=== PATIENT | male | born 1990 | race Caucasian/White ===

== ENCOUNTER → 2019-12-15 | Outpatient (BNVA) | payer OTHER, SELFPAY | PROVIDERS: Visit Provider Internal Medicine | DX: M75.42 Impingement syndrome of left shoulder (principal) | CPT/HCPCS: 99202 ==

== ENCOUNTER → 2019-12-19 08:34 | Outpatient (BNVA) | payer OTHER, SELFPAY | PROVIDERS: Visit Provider Internal Medicine | DX: M75.42 Impingement syndrome of left shoulder (principal) | CPT/HCPCS: 99213 ==

== ENCOUNTER 2020-02-12 09:00 | Outpatient (RCR) | payer OTHER, SELFPAY ==
--- NOTE | 2019-12-21 15:24 | MHC.PT.EP ---
[facility] [place] [facility] [place] [facility] [place] [facility] [address] Schuyler Gallo [address] [phone] F: [phone] F: [phone] F: [phone] F: [phone] Physical Therapy Plan of Care Date of Evaluation: 12/21/19 Date of Surgery: Diagnosis: left shoulder pain Assessment: The patient had slightly decreased cervical rotation ROM. He had painful shoulder flexion/abduction at end range. He had sharp local pain at the AC joint and distal acromion. He was positive for GH impingement tests. I did a Gladys screen to his cervical spine and there seemed to be no relation. He is a good candidate for skilled PT to improve his current impairments. Frequency and Duration: The patient will be seen 2x/week for 4 weeks. Short Term Goals: Pt will return to full PROM in 2 weeks. Pt will return demonstration of current HEP in 2 weeks. Snf Goals: 1. Pt will be able to perform all functional reaching pain free in 4 weeks. 2. Pt will be able to return to work simulated tasks such as dynamic movement with resistance in 4 weeks. 3. Pt will return to all functional movements and uninterrupted sleep in 4 weeks. Treatment Plan: Modalities to reduce pain, spasms and effusion. Manual therapy to restore motion and function. Therapeutic exercise to improve strength and flexibility. Neuromuscular re-education for posture and balance. Therapeutic activities to return to functional activities of daily living. Please sign and return to therapist. Thank you for your referral.
--- NOTE | 2020-02-19 14:47 | MHC.PT.DC ---
[facility] [place] Office [place] Office [place] Office [address] Schuyler Gallo 140 [facility] [phone] F: [phone] F: [phone] F: [phone] F: [phone] Physical Therapy Discharge Report Diagnosis: left shoulder pain Date of Surgery: Date of Evaluation: 12/21/19 Date of Discharge: 02/12/20 Treatments to Date: 11 Cancellations to Date: 2 No Shows to Date: 0 Discharge Status: Achieved Goals Improved Function Independent with HEP Discharge Summary: Pt's ROM is nearly WNL. He has normal strength in all planes of motion other than overhead. He is independent with his strength program and has been discharged to continue he HEP. He has returned back to work normal duty. Electronically signed by: Key Sarabia PT DPT Please sign and return to therapist. Thank you for your referral.
== END 2020-02-19 14:49 | disposition other institution (70) ==
LOC: HO.PT 09:00
PROVIDERS: Visit Provider Internal Medicine
DX: S46.002D Unspecified injury of muscle(s) and tendon(s) of the rotator cuff of left shoulder, subsequent encounter (principal); X58.XXXD Exposure to other specified factors, subsequent encounter
CPT/HCPCS: 97033; 97110; 97112; 97140; 97161; 99213

== ENCOUNTER 2023-12-22 11:29 | Outpatient (REF) | payer OTHER, SELFPAY | END 2023-12-22 11:30 | disposition home or self-care (01) | LOC: HO.US 11:29 | PROVIDERS: Visit Provider Internal Medicine | DX: R10.32 Left lower quadrant pain (principal) | CPT/HCPCS: 76857 ==

== ENCOUNTER 2024-09-06 20:49 | Emergency (ER) | payer OTHER, SELFPAY ==
--- NOTE | ~2024-09-06 | XR_ITS ---
CLINICAL HISTORY: contusion L wrist, pain 4 view left wrist Comparison: None provided Findings: Bones intact. No dislocations. No radiopaque foreign body. IMPRESSION: 1. No acute fracture or dislocation injury identified at the left wrist. This document has been electronically signed by: Preston Danielson MD on 09/06/2024 21:36:37
--- NOTE | ~2024-09-06 | XR_ITS ---
CLINICAL HISTORY: contusion 3 view left hand Comparison: None provided Findings: Bones intact. No dislocations. No radiopaque foreign body. IMPRESSION: 1. No acute fracture or dislocation injury identified at the left hand This document has been electronically signed by: Preston Danielson MD on 09/06/2024 21:32:59
[2024-09-06 20:52] VITALS: BP 133/76; PULSE 68; RESP 16; TEMP 36.7; O2SAT 98; BMI 29.8
--- OUTSIDE RECORDS SUMMARY | 2024-09-06 21:03 | XMS_ITS | Clinical Summary ---
Author Organization [facility] Address [address] [place] [phone] Phone Care Team Providers Care Motel Manager Name Role Phone Sophia Arcos MD Primary Care Provider [phone] Immunizations Immunization Administration Dates Next Due DTP 05/03/1996, 3,1991,07/10,1991 Hep B, ped/adol 02/21/1996,09/20/1995,08/18/1995 Hib (PRP-T) 07/04/1992, 2,1991,04/22 MMR 05/03/1996,07/04/1992 Meningococcal Conj (Menactra) MCV4P 08/16/2007 OPV 05/03/1996, 3,1991,04/22 Td (adult) (MBL), 2 Lf tetan us toxoid, PF, adsorbed 05/11/2003 Tdap 08/16/2007 Varicella 08/16/2007,08/18/1995,08/02/1995 Family History Relation Name Status Comments Brother Brother: Cancer -brain, Father Alive Father: Alive a nd well Mother Alive Mother: Alive a nd well Paternal Grandfather Paterna l grandfather: cancer, Paternal Grandmother Paterna l grandmother: , cardiac Social History Tobacco Use Types Packs/Day Years Used Date Smoking Tobacco: Never Assessed Sex and Gender Information Value Date Recorded Sex Assigned at Not on file Legal Sex Male 4:34 PM EDT Gender Identity Not on file Sexual Orientation Not on file Last Filed Vital Signs Vital Sign Reading Time Taken Comments Blood Pressure 108/66 08/19/2009 12:00 AM EDT Pulse - - Temperature 36.8 C (98.2 F) 02/06/2010 12:00 AM EST Respiratory Rate - - Oxygen Saturation - - Inhaled Oxygen Concentration - - Weight 67.6 kg (149 lb) 02/06/2010 12:00 AM EST Height 169.7 cm (5' 6.8 ) 08/19/2009 12:00 AM ED T Body Mass Index 23.48 08/19/2009 12:00 AM EDT Plan of Treatment Health Maintenance Due Date Last Done Comments DTaP,Tdap,and Td Vaccines (7 - Td or Tdap) 08/15/2017 08/16/2007, 05/11/2003, 05/03/1996, Additional history exists COVID-19 Vaccine ( season) 2023 Influenza Vaccines (#1) 2024 HIB Vaccines Completed 07/04/1992, 08/24, 1991, Additional history exists Hepatitis B Vaccines Completed 02/21/1996, 09/20/1995, 08/18/1995 IPV Vaccines Completed 05/03/1996, 11/22, 1991, Additional history exists MMR Vaccines Completed 05/03/1996, 07/04/1992 Meningococcal Vaccine Completed 08/16/2007 Varicella Vaccines Completed 08/16/2007, 0 08/18/1995, 08/02/1995 HPV Vaccines Aged Out No longer eligi ble based on patient's age to complete this topic Hepatitis A Vaccines Aged Out No long er eligible based on patient's age to complete this topic Men B Vaccine Aged Out No longer elig ible based on patient's age to complete this topic Pneumococcal Vaccine Aged Out No long er eligible based on patient's age to complete this topic Care Teams Motel Manager Relationship Specialty Start Date End Date Sophia Arcos MD [address] [place] [address] AMBER Blanchard [id number] PCP - General 10/02/16
--- OUTSIDE RECORDS SUMMARY | 2024-09-06 21:04 | XMS_ITS | Data Portability ---
Author Organization [facility], Main Office Address [address] [place] [address] Care Team Providers Care Bait Digger Name Role Phone FRAN ARGUELLES Primary Care Provider RICA MUSTAFA Urologist [facility] Senior Accounting Manager CLAUDIA PERRY Senior Accounting Manager [facility] General Surgeon SHERIE SOLOMON Phys. Med. & Rehab Assessment No assessment recorded. Plan of Treatment Reminders Order Date Submit Date Provider Last Modified By Organization Details Last Modified Time Details Appointments None record ed. Lab urinal ysis comple te, reflex cultur e 2023 024 AURY [facility] (Centralized Electronic Ordering - All Locations), Patient Can Go To The Location Of Their Choice, [id number] 4 12:06:00 urinal ysis, comple te 2022 023 AURY [facility], [address], [place], [address], 3 15:24:27 CMP, serum or plasma 2022 023 AURY [facility], [address], [place], [address], 3 15:19:13 lipid panel, serum 2022 023 AURY [facility], [address], [place], [address], 3 15:19:14 TSH, serum or plasma 2022 023 AURY [facility], [address], [place], [address], 3 15:32:13 CBC w/ auto diff 2022 023 AURY [facility], [address], [place], [address], 3 14:36:25 hepati tis C virus Ab, serum 2022 023 AURY [facility], [address], [place], [address], 3 07:07:12 CT + NG DNA, PCR, urine 2022 023 AURY [facility], [address], [place], [address], 3 12:18:20 urinal ysis, dipsti ck 2022 023 [email or web address] In-Office Order, Internal Use Only DO Not Attach Compendium DO Not Attach Compendium, Do Not Delete/merge, [id number] 3 18:22:05 unlist ed lab - urinal ysis w/refl ex cultur e 2022 023 [email or web address] [facility], [address], [place], [address], 3 18:22:05 Referral nutrit ionist /dieti luisito referr al 2023 024 [email or web address] Not available 5 09:14:32 physic al medici ne and rehabi litati on referr al - for eval of hip flexor strain 2023 024 [email or web address] [facility], [address] [place], [address], 5 09:14:32 physic al medici ne and rehabi litati on referr al - Bilate ral inguin al pain L>R 2023 024 [email or web address] [facility], [address] [place], [address], 4 08:48:07 nutrit ionist /dieti luisito referr al 2022 023 [email or web address] Not available 3 11:20:58 urolog ist referr al - dysuri a withou t infect ion, penile lesion s, rectal pressu re, flank pain US pendin g 2022 023 [email or web address] [facility], [address], [place], [address], 3 13:22:43 gastro entero logist referr al - monthl y interm ittent rectal bleedi ng 2022 023 [email or web address] Pompa MD, [address], [place], [address], 3 11:12:23 Procedures None record ed. Surgeries None record ed. Imaging US, groin - Left inguin al pain. R/o hernia . 2023 024 [email or web address] [facility] (Central Scheduling Radiology), [address] [place], [address], 4 08:20:07 US, kidney - occasi onal hematu cassy and flank pain, rule out stones 2022 023 [facility] (Ultrasound), [address] [place], [address], 3 10:55:10 US, blaherminiae r - bladde r irrita iton, r/o stones [email or web address] [facility] (Medical Records), [address] [place], [address], 14:36:59 Medication Orders None record ed. Patient TargetsNo targets recorded. Patient Instructions Encounter Date Encounter Id Patient Instructions Last Modified By Organization Details Last Modified Time 01/12/2023 [id number] starting a weight loss plan: care instructions [email or web address] Not available 01/12/2023 10:59:10 01/27/2024 [id number] starting a weight loss plan: care instructions [email or web address] Not available 01/27/2024 11:06:31 hip flexor strain education [email or web address] Not available 01/27/2024 11:06:30 hip flexor strain: rehab exercises [email or web address] Not available 01/27/2024 11:06:30 Reason for Referral Senior Accounting Manager Referral for History of rectal bleeding monthly intermittent rectal bleeding Referring Physician: [facility], Encounter Date: 06/12/2022 Urologist Referral for Dysur ia dysuria without infection, penile lesions, rectal pressure, flank pain US pending Referring Physician: Family [facility], Encounter Date: 06/12/2022 Matrix Supervisor/dietitian Refer ral for Body mass index 30+ - obesity Referring Physician: Family Maria Esther Dela Cruz, Encounter Date: 01/12/2023 Physical Medicine And Rehab[facility] litation Referral for Left inguinal pain Bilateral inguinal pain L>R Referring Physician: Wil [facility], Encounter Date: 11/24/2023 Physical Medicine And Rehabi litation Referral for Bilateral pain of inguinal region for eval of hip flexor strain Referring Physician: Family Maria Esther Dela Cruz, Encounter Date: 01/27/2024 Matrix Supervisor/dietitian Refer ral for Body mass index 30+ - obesity Referring Physician: Family Maria Esther Dela Cruz, Encounter Date: 01/27/2024 Results Created Date Observation Date Name Description Value Unit Range Abnormal Flag Note LastModifiedBy Organization Detail LastModifiedTime 06/13/1906/13/2022 UA W/REF MANASA CULTU RE appear/color COLOR LESS CLEAR Not Available [facility] (Centralized Electronic Ordering - All Locations) Patient Can Go To The Location Of Their Choice, 06/13/2022 02:50:22 06/13/1906/13/2022 UA W/REF MANASA CULTU RE sp. gravity 1.007 (1.002 -1.030 ) Not Available [facility] (Centralized Electronic Ordering - All Locations) Patient Can Go To The Location Of Their Choice, 06/13/2022 02:50:06/13/1906/13/2022 UA W/REF MANASA CULTU RE urine pH 6.0 (5.0-8 .0) Not Available [facility] (Centralized Electronic Ordering - All Locations) Patient Can Go To The Location Of Their Choice, 06/13/2022 02:50:22 06/13/1906/13/2022 UA W/REF MANASA CULTU RE urine albumin NEGATI VE (neg) Not Available [facility] (Centralized Electronic Ordering - All Locations) Patient Can Go To The Location Of Their Choice, 06/13/2022 02:50:22 06/13/1906/13/2022 UA W/REF MANASA CULTU RE urine glucose NEGATI VE (neg) Not Available [facility] (Centralized Electronic Ordering - All Locations) Patient Can Go To The Location Of Their Choice, 06/13/2022 02:50:22 06/13/1906/13/2022 UA W/REF MANASA CULTU RE urine ketones NEGATI VE (neg) Not Available [facility] (Centralized Electronic Ordering - All Locations) Patient Can Go To The Location Of Their Choice, 06/13/2022 02:50:22 06/13/1906/13/2022 UA W/REF MANASA CULTU RE urine bilirubin NEGATI VE (neg) Not Available [facility] (Centralized Electronic Ordering - All Locations) Patient Can Go To The Location Of Their Choice, 06/13/2022 02:50:22 06/13/1906/13/2022 UA W/REF MANASA CULTU RE urine hemoglobin NEGATI VE (neg) Not Available [facility] (Centralized Electronic Ordering - All Locations) Patient Can Go To The Location Of Their Choice, 06/13/2022 02:50:22 06/13/1906/13/2022 UA W/REF MANASA CULTU RE urine nitrite NEGATI VE (neg) Not Available [facility] (Centralized Electronic Ordering - All Locations) Patient Can Go To The Location Of Their Choice, 06/13/2022 02:50:22 06/13/1906/13/2022 UA W/REF MANASA CULTU RE urine leukocyte NEGATI VE (neg) Not Available [facility] (Centralized Electronic Ordering - All Locations) Patient Can Go To The Location Of Their Choice, 06/13/2022 02:50:22 06/13/1906/13/2022 UA W/REF MANASA CULTU RE urobilinogen NORMAL mg/dL (norm) Not Available [facility] (Centralized [facility] Ordering - All Locations) Patient Can Go To The Location Of Their Choice, 06/13/2022 02:50:22 06/13/1906/13/2022 UA W/REF MANASA CULTU RE urine WBCs NONE SEEN /hpf (0-5) Not Available [facility] (Centralized Electronic Ordering - All Locations) Patient Can Go To The Location Of Their Choice, 06/13/2022 02:50:22 06/13/1906/13/2022 UA W/REF MANASA CULTU RE urine RBCs 1 /hpf (0-3) Not Available [facility] (Centralized Electronic Ordering - All Locations) Patient Can Go To The Location Of Their Choice, 06/13/2022 02:50:22 06/13/1906/13/2022 UA W/REF MANASA CULTU RE clarity CLEAR (clear ) Not Available [facility] (Centralized Electronic Ordering - All Locations) Patient Can Go To The Location Of Their Choice, 06/13/2022 02:50:22 06/13/1906/13/2022 UA W/REF MANASA CULTU RE culture indication CULTUR E NOT INDICA SEBASTIAN Not Available [facility] (Centralized Electronic Ordering - All Locations) Patient Can Go To The Location Of Their Choice, 06/13/2022 02:50:22 06/13/19 23 06/12/2022 urina lysis , dipst ick Leukocytes Negati ve Not Available In-Office Order Internal Use Only DO Not Attach Compendium DO Not Attach Compendium, Do Not Delete/merge, [facility] 06/12/2022 07:18:43 06/13/19 23 06/12/2022 urina lysis , dipst ick Nitritie negati ve Not Available In-Office Order Internal Use Only DO Not Attach Compendium DO Not Attach Compendium, Do Not Delete/merge, [facility] 06/12/2022 07:18:43 06/13/19 23 06/12/2022 urina lysis , dipst ick Urobilinogen .2 Not Available In-Of fice Order Internal Use Only DO Not Attach Compendium DO Not Attach Compendium, Do Not Delete/merge, [facility] 06/12/2022 07:18:43 06/13/19 23 06/12/2022 urina lysis , dipst ick Protein Negati ve Not Available In-Office Order Internal Use Only DO Not Attach Compendium DO Not Attach Compendium, Do Not Delete/merge, [facility] 06/12/2022 07:18:43 06/13/19 23 06/12/2022 urina lysis , dipst ick pH 6.0 Not Available In-Office Order Internal Use Only DO Not Attach Compendium DO Not Attach Compendium, Do Not Delete/merge, [facility] 06/12/2022 07:18:43 06/13/19 23 06/12/2022 urina lysis , dipst ick Blood Negati ve Not Available In-Office Order Internal Use Only DO Not Attach Compendium DO Not Attach Compendium, Do Not Delete/merge, [facility] 06/12/2022 07:18:43 06/13/19 23 06/12/2022 urina lysis , dipst ick Specific [place] 1.010 Not Available In-Off ice Order Internal Use Only DO Not Attach Compendium DO Not Attach Compendium, Do Not Delete/merge, [facility] 06/12/2022 07:18:43 06/13/19 23 06/12/2022 urina lysis , dipst ick Ketone Negati ve Not Available In-Office Order Internal Use Only DO Not Attach Compendium DO Not Attach Compendium, Do Not Delete/merge, [id number] 06/12/2022 07:18:43 06/13/1906/12/2022 urina lysis , dipst ick Bilirubin Negati ve Not Available In-Office Order Internal Use Only DO Not Attach Compendium DO Not Attach Compendium, Do Not Delete/merge, [id number] 06/12/2022 07:18:43 06/13/19 23 06/12/2022 urina lysis , dipst ick Glucose Negati ve Not Available In-Office Order Internal Use Only DO Not Attach Compendium DO Not Attach Compendium, Do Not Delete/merge, [facility] 06/12/2022 07:18:43 06/13/19 23 06/12/2022 urina lysis , dipst ick Appearance Slight ly Cloudy Not Available In-Office Order Internal Use Only DO Not Attach Compendium DO Not Attach Compendium, Do Not Delete/merge, [facility] 06/12/2022 07:18:43 06/13/1906/12/2022 urina lysis , dipst ick Color Pale Yellow Not Available In-Office Order Internal Use Only DO Not Attach Compendium DO Not Attach Compendium, Do Not Delete/merge, [facility] 06/12/2022 07:18:43 01/13/2001/12/2023 COMPL ETE CBC WITH DIFF WBC 5.5 K/mm3 (4.0-1 1.0) Not Available [facility] (Centralized Electronic Ordering - All Locations) Patient Can Go To The Location Of Their Choice, [id number] 01/12/2023 14:36:25 01/13/2001/12/2023 COMPL ETE CBC WITH DIFF RBC 4.98 M/mm3 (4.70- 6.10) Not Available [facility] (Centralized Electronic Ordering - All Locations) Patient Can Go To The Location Of Their Choice, [id number] 01/12/2023 14:36:25 01/13/2001/12/2023 COMPL ETE CBC WITH DIFF HGB 14.8 gm/dL (13.7- 17.1) Not Available [facility] (Centralized Electronic Ordering - All Locations) Patient Can Go To The Location Of Their Choice, 01/12/2023 14:36:25 01/13/2001/12/2023 COMPL ETE CBC WITH DIFF HCT 43.8 % (40.5- 50.0) Not Available [facility] (Centralized Electronic Ordering - All Locations) Patient Can Go To The Location Of Their Choice, 01/12/2023 14:36:25 01/13/2001/12/2023 COMPL ETE CBC WITH DIFF MCV 88.0 fL (80.0- 94.0) Not Available [facility] (Centralized Electronic Ordering - All Locations) Patient Can Go To The Location Of Their Choice, 01/12/2023 14:36:25 01/13/2001/12/2023 COMPL ETE CBC WITH DIFF MCH 29.7 pg (27.0- 34.0) Not Available [facility] (Centralized Electronic Ordering - All Locations) Patient Can Go To The Location Of Their Choice, 01/12/2023 14:36:25 01/13/2001/12/2023 COMPL ETE CBC WITH DIFF MCHC 33.8 g/dL (33.0- 37.0) Not Available [facility] (Centralized Electronic Ordering - All Locations) Patient Can Go To The Location Of Their Choice, 01/12/2023 14:36:25 01/13/2001/12/2023 COMPL ETE CBC WITH DIFF plt 314 K/mm3 (150-4 60) Not Available [facility] (Centralized Electronic Ordering - All Locations) Patient Can Go To The Location Of Their Choice, 01/12/2023 14:36:25 01/13/2001/12/2023 COMPL ETE CBC WITH DIFF RDW-SD 39.4 fL (<47.0 ) Not Available [facility] (Centralized Electronic Ordering - All Locations) Patient Can Go To The Location Of Their Choice, 01/12/2023 14:36:25 01/13/2001/12/2023 COMPL ETE CBC WITH DIFF MPV 9.4 fL (9.4-1 2.4) Not Available [facility] (Centralized Electronic Ordering - All Locations) Patient Can Go To The Location Of Their Choice, 01/12/2023 14:36:25 01/13/2014 0101/12/2023 COMPL ETE CBC WITH DIFF automated NRBC 0.0 #/100 _WBC' s Not Available [facility] (Centralized Electronic Ordering - All Locations) Patient Can Go To The Location Of Their Choice, 01/12/2023 14:36:25 01/13/20 23 01/12/2023 COMPL ETE CBC WITH DIFF abs. NRBC 0.0 K/mm3 Not Available [facility] (Centralized Electronic Ordering - All Locations) Patient Can Go To The Location Of Their Choice, 01/12/2023 14:36:25 01/13/20 23 01/12/2023 COMPL ETE CBC WITH DIFF neut # 3.2 K/mm3 (1.3-7 .0) Not Available [facility] (Centralized Electronic Ordering - All Locations) Patient Can Go To The Location Of Their Choice, 01/12/2023 14:36:25 01/13/20 23 01/12/2023 COMPL ETE CBC WITH DIFF lymph # 1.6 K/mm3 (0.8-3 .1) Not Available [facility] (Centralized Electronic Ordering - All Locations) Patient Can Go To The Location Of Their Choice, 01/12/2023 14:36:25 01/13/20 23 01/12/2023 COMPL ETE CBC WITH DIFF mono# 0.5 K/mm3 (0.4-1 .3) Not Available [facility] (Centralized Electronic Ordering - All Locations) Patient Can Go To The Location Of Their Choice, 01/12/2023 14:36:25 01/13/20 23 01/12/2023 COMPL ETE CBC WITH DIFF eo # 0.3 K/mm3 (0.0-0 .4) Not Available [facility] (Centralized Electronic Ordering - All Locations) Patient Can Go To The Location Of Their Choice, 01/12/2023 14:36:25 01/13/20 23 01/12/2023 COMPL ETE CBC WITH DIFF baso # 0.0 K/mm3 (0.0-0 .1) Not Available [facility] (Centralized Electronic Ordering - All Locations) Patient Can Go To The Location Of Their Choice, 01/12/2023 14:36:25 01/13/20 23 01/12/2023 COMPL ETE CBC WITH DIFF abs. imm gran 0.0 K/mm3 Not Available [facility] ([facility] Ordering - All Locations) Patient Can Go To The Location Of Their Choice, 01/12/2023 14:36:25 01/13/2001/12/2023 COMPL ETE CBC WITH DIFF neut 57.2 % (44-76 ) Not Available [facility] (Centralized Electronic Ordering - All Locations) Patient Can Go To The Location Of Their Choice, 01/12/2023 14:36:25 01/13/2001/12/2023 COMPL ETE CBC WITH DIFF lymph 28.8 % (15-43 ) Not Available [facility] (Centralized Electronic Ordering - All Locations) Patient Can Go To The Location Of Their Choice, 01/12/2023 14:36:25 01/13/2001/12/2023 COMPL ETE CBC WITH DIFF monocyte 8.1 % (4.5-1 0.5) Not Available [facility] (Centralized Electronic Ordering - All Locations) Patient Can Go To The Location Of Their Choice, 01/12/2023 14:36:25 01/13/2001/12/2023 COMPL ETE CBC WITH DIFF eo 4.9 % (0-6) Not Available [facility] (Centralized Electronic Ordering - All Locations) Patient Can Go To The Location Of Their Choice, 01/12/2023 14:36:25 01/13/2001/12/2023 COMPL ETE CBC WITH DIFF baso 0.5 % (0-2) Not Available [facility] (Centralized Electronic Ordering - All Locations) Patient Can Go To The Location Of Their Choice, 01/12/2023 14:36:25 01/13/2001/12/2023 COMPL ETE CBC WITH DIFF imm gran 0.5 % Not Available [facility] (Centralized Electronic Ordering - All Locations) Patient Can Go To The Location Of Their Choice, 01/12/2023 14:36:25 01/13/2001/12/2023 COMPR EHENS KAREN METAB OLIC PANL glucose 93 mg/dL (70-99 ) Not Available [facility] (Centralized Electronic Ordering - All Locations) Patient Can Go To The Location Of Their Choice, 01/12/2023 15:19:12 01/13/2001/12/2023 COMPR EHENS KAREN METAB OLIC PANL BUN 12 mg/dL (6-20) Not Available [facility] (Centralized Electronic Ordering - All Locations) Patient Can Go To The Location Of Their Choice, 01/12/2023 15:19:12 01/13/2001/12/2023 COMPR EHENS KAREN METAB OLIC PANL creatinine 1.0 mg/dL (0.7-1 .2) Not Available [facility] (Centralized Electronic Ordering - All Locations) Patient Can Go To The Location Of Their Choice, 01/12/2023 15:19:12 01/13/2001/12/2023 COMPR EHENS KAREN METAB OLIC PANL sodium 141 mmol/ L (133-1 45) Not Available [facility] (Centralized Electronic Ordering - All Locations) Patient Can Go To The Location Of Their Choice, 01/12/2023 15:19:12 01/13/2001/12/2023 COMPR EHENS KAREN METAB OLIC PANL potassium 4.5 mmol/ L (3.6-5 .2) Not Available [facility] (Centralized Electronic Ordering - All Locations) Patient Can Go To The Location Of Their Choice, 01/12/2023 15:19:12 01/13/2001/12/2023 COMPR EHENS KAREN METAB OLIC PANL chloride 104 mmol/ L (98-10 7) Not Available [facility] (Centralized Electronic Ordering - All Locations) Patient Can Go To The Location Of Their Choice, 01/12/2023 15:19:12 01/13/2001/12/2023 COMPR EHENS KAREN METAB OLIC PANL bicarbonate 28 mmol/ L (22-29 ) Not Available [facility] (Centralized Electronic Ordering - All Locations) Patient Can Go To The Location Of Their Choice, 01/12/2023 15:19:12 01/13/2001/12/2023 COMPR EHENS KAREN METAB OLIC PANL anion gap 9 (4-17) Not Available [facility] (Centralized Electronic Ordering - All Locations) Patient Can Go To The Location Of Their Choice, 01/12/2023 15:19:12 01/13/2001/12/2023 COMPR EHENS KAREN METAB OLIC PANL albumin 4.9 gm/dL (3.4-4 .8) high Not Available [facility] (Centralized Electronic Ordering - All Locations) Patient Can Go To The Location Of Their Choice, 01/12/2023 15:19:12 01/13/2001/12/2023 COMPR EHENS KAREN METAB OLIC PANL calcium 9.6 mg/dL (8.6-1 0.5) Not Available [facility] (Centralized Electronic Ordering - All Locations) Patient Can Go To The Location Of Their Choice, 01/12/2023 15:19:12 01/13/2001/12/2023 COMPR EHENS KAREN METAB OLIC PANL bilirubin,to brian 0.5 mg/dL (0-1.2 ) Not Available [facility] (Centralized Electronic Ordering - All Locations) Patient Can Go To The Location Of Their Choice, 01/12/2023 15:19:12 01/13/2001/12/2023 COMPR EHENS KAREN METAB OLIC PANL total protein 7.1 gm/dL (6.2-8 .2) Not Available [facility] (Centralized Electronic Ordering - All Locations) Patient Can Go To The Location Of Their Choice, 01/12/2023 15:19:12 01/13/2001/12/2023 COMPR EHENS KAREN METAB OLIC PANL Ag ratio 2.2 Not Available [facility] (Centralized Electronic Ordering - All Locations) Patient Can Go To The Location Of Their Choice, 01/12/2023 15:19:12 01/13/2001/12/2023 COMPR EHENS KAREN METAB OLIC PANL AST 22 U/L (0-40) Not Available [facility] (Centralized Electronic Ordering - All Locations) Patient Can Go To The Location Of Their Choice, 01/12/2023 15:19:12 01/13/2001/12/2023 COMPR EHENS KAREN METAB OLIC PANL alk phos 69 U/L (40-12 9) Not Available [facility] (Centralized Electronic Ordering - All Locations) Patient Can Go To The Location Of Their Choice, 01/12/2023 15:19:12 01/13/2001/12/2023 COMPR EHENS KAREN METAB OLIC PANL ALT 25 U/L (0-41) Not Available [facility] (Centralized Electronic Ordering - All Locations) Patient Can Go To The Location Of Their Choice, [id number] 01/12/2023 15:19:12 01/13/2001/12/2023 COMPR EHENS KAREN METAB OLIC PANL estimated GFR creatinine 110 mL/mi n/1.7 3_M2 Creat inine based estim ated glome rular filtr ation (eGFR ) in adult s is calcu lated using the Natio nal Kidne y Found ation recom elaine d 2020 CKD-E PI equat ion. Estim ates GFR from serum creat inine , age and sex. Not Available [facility] (Centralized Electronic Ordering - All Locations) Patient Can Go To The Location Of Their Choice, 01/12/2023 15:19:12 01/13/2001/12/2023 LIPID PANEL cholesterol, total 183 mg/dL (<200) Not Available [facility] ([facility] Ordering - All Locations) Patient Can Go To The Location Of Their Choice, 01/12/2023 15:19:14 01/13/2001/12/2023 LIPID PANEL triglyceride 73 mg/dL (<150) Not Available [facility] (Central[facility] Ordering - All Locations) Patient Can Go To The Location Of Their Choice, 01/12/2023 15:19:14 01/13/2001/12/2023 LIPID PANEL HDL chol 52 mg/dL (>39) Not Available [facility] (Centralized Electronic Ordering - All Locations) Patient Can Go To The Location Of Their Choice, [id number] 01/12/2023 15:19:14 01/13/2001/12/2023 LIPID PANEL LDL cholesterol, calculated 116 mg/dL (0-130 ) Not Available [facility] (Centralized Electronic Ordering - All Locations) Patient Can Go To The Location Of Their Choice, [id number] 01/12/2023 15:19:14 01/13/2001/12/2023 LIPID PANEL non HDL cholesterol (calc) 131 mg/dL (<160) Not Available [facility] ([facility] Ordering - All Locations) Patient Can Go To The Location Of Their Choice, 01/12/2023 15:19:14 01/13/2001/12/2023 LAB ONLY URINA LYSIS appear/color COLOR LESS CLEAR Not Available [facility] (Centralized Electronic Ordering - All Locations) Patient Can Go To The Location Of Their Choice, 01/12/2023 15:24:27 01/13/2001/12/2023 LAB ONLY URINA LYSIS sp. gravity 1.007 (1.002 -1.030 ) Not Available [facility] (Centralized Electronic Ordering - All Locations) Patient Can Go To The Location Of Their Choice, 01/12/2023 15:24:27 01/13/2001/12/2023 LAB ONLY URINA LYSIS urine pH 7.0 (5.0-8 .0) Not Available [facility] (Centralized Electronic Ordering - All Locations) Patient Can Go To The Location Of Their Choice, 01/12/2023 15:24:27 01/13/2001/12/2023 LAB ONLY URINA LYSIS urine albumin NEGATI VE (neg) Not Available [facility] (Centralized Electronic Ordering - All Locations) Patient Can Go To The Location Of Their Choice, 01/12/2023 15:24:27 01/13/2001/12/2023 LAB ONLY URINA LYSIS urine glucose NEGATI VE (neg) Not Available [facility] (Centralized Electronic Ordering - All Locations) Patient Can Go To The Location Of Their Choice, 01/12/2023 15:24:27 01/13/2001/12/2023 LAB ONLY URINA LYSIS urine ketones NEGATI VE (neg) Not Available [facility] (Centralized Electronic Ordering - All Locations) Patient Can Go To The Location Of Their Choice, 01/12/2023 15:24:27 01/13/2001/12/2023 LAB ONLY URINA LYSIS urine bilirubin NEGATI VE (neg) Not Available [facility] (Centralized Electronic Ordering - All Locations) Patient Can Go To The Location Of Their Choice, 01/12/2023 15:24:27 01/13/2001/12/2023 LAB ONLY URINA LYSIS urine hemoglobin NEGATI VE (neg) Not Available [facility] (Centralized Electronic Ordering - All Locations) Patient Can Go To The Location Of Their Choice, 01/12/2023 15:24:27 01/13/2001/12/2023 LAB ONLY URINA LYSIS urine nitrite NEGATI VE (neg) Not Available [facility] (Centralized Electronic Ordering - All Locations) Patient Can Go To The Location Of Their Choice, [id number] 01/12/2023 15:24:27 01/13/2001/12/2023 LAB ONLY URINA LYSIS urine leukocyte NEGATI VE (neg) Not Available [facility] (Centralized Electronic Ordering - All Locations) Patient Can Go To The Location Of Their Choice, [id number] 01/12/2023 15:24:27 01/13/2001/12/2023 LAB ONLY URINA LYSIS urobilinogen NORMAL mg/dL (norm) Not Available [facility] ([facility] Ordering - All Locations) Patient Can Go To The Location Of Their Choice, [id number] 01/12/2023 15:24:27 01/13/2001/12/2023 LAB ONLY URINA LYSIS urine WBCs NONE SEEN /hpf (0-5) Not Available [facility] (Centralized Electronic Ordering - All Locations) Patient Can Go To The Location Of Their Choice, [id number] 01/12/2023 15:24:27 01/13/2001/12/2023 LAB ONLY URINA LYSIS urine RBCs NONE SEEN /hpf (0-3) Not Available [facility] (Centralized Electronic Ordering - All Locations) Patient Can Go To The Location Of Their Choice, [id number] 01/12/2023 15:24:27 01/13/2001/12/2023 LAB ONLY URINA LYSIS squamous epith <1 /hpf (0-8) Not Available [facility] (Centralized Electronic Ordering - All Locations) Patient Can Go To The Location Of Their Choice, 01/12/2023 15:24:27 01/13/2001/12/2023 TSH WITH REFLE X TO FT4 TSH 0.68 uIU/m L (0.4-4 .2) Not Available [facility] (Centralized Electronic Ordering - All Locations) Patient Can Go To The Location Of Their Choice, 01/12/2023 15:32:12 01/13/2001/13/2023 CHLAM YDIA/ NEISS ERIA RNA, TMA, URINE urine chlamydia amp probe (neg) NEGAT KAREN No Chlam ydia Trach omati s RNA detec sebastian in this patie nt's sampl e (REFE RENCE RANGE /NORM AL VALUE : NOT DETEC SEBASTIAN) Note: This test uses trans cript ion- media sebastian ampli ficat ion metho d to detec t rRNA from C. Trach omati s Not Available [facility] (Centralized Electronic Ordering - All Locations) Patient Can Go To The Location Of Their Choice, [id number] 01/13/2023 12:18:20 01/13/20 23 01/13/2023 CHLAM YDIA/ NEISS ERIA RNA, TMA, URINE urine GC amp probe (neg) NEGAT KAREN No Neiss eria Gonor rhoea e RNA detec sebastian in this patie nt's sampl e (REFE RENCE RANGE /NORM AL VALUE : NOT DETEC SEBASTIAN) NOTE: This test uses trans cript ion-m ediat ed ampli ficat ion metho d to detec t rRNA from N.Xavier orrho eae. A negat karen resul t does not precl ude infec tion. In the case of a negat karen urine resul t, testi ng of an endoc ervic al(fe male) or ureth ral (male ) speci men is recom elaine d if there is high clini sorin suspi cion of infec tion. Due to very high sensi tivit y of Nucle ic Acid Ampli ficat ion Test, false posit karen resul ts may occur . There fore, speci men handl ing is extre madeline impor tant. In patie nts in whom the disea se is unlik juan miguel, addit ional sampl e for testi ng shoul d be consi dered after an initi al posit karen resul t. The perfo rmanc e megan cteri stics of this test have not been evalu ated in child destin. The Aptim a Combo 2 assay is not inten ded for the evalu ation of suspe cted sexua l abuse or for other medic o-leg al indic ation s. The order ing provi james shoul d asses s if the patie nt had conse nsual sex witho ut risk of sexua l abuse . [facility] if neede d. Conta ct phone sharee r . Thera peuti c failu re or succe ss canno t be deter mined with the Aptim a Combo 2 assay since nucle ic acid may persi st follo wing appro priat e antim icrob ial thera py. The Cente rs for Disea se Contr ol and Preve ntion ([facility] [place]) recom mends confi rmato ry retes ting using cultu re or a diffe rent nucle ic acid ampli ficat ion test when posit karen resul ts occur , if indic ated. Not Available [facility] (Centralized Electronic Ordering - All Locations) Patient Can Go To The Location Of Their Choice, [id number] 01/13/2023 12:18:20 01/13/2001/14/2023 ANTI- HEPAT ITIS C anti-hepatit is C (neg) Non React karen Refer ence range : Non React karen (NOTE ) HCV antib sarah alone does not diffe renti ate betwe en previ ously resol norma infec tion and activ e infec tion. Equiv ocal and React karen HCV antib sarah resul ts shoul d be follo wed up with an HCV RNA test to suppo rt the diagn osis of activ e HCV infec tion. Test perfo rmed by [facility], [address], [place] [address] Not Available [facility] (Centralized Electronic Ordering - All Locations) Patient Can Go To The Location Of Their Choice, [id number] 01/14/2023 07:07:12 01/27/20 24 01/28/2024 UA WITH CULTU RE REFLE X specific gravity 1.008 1.005- 1.030 normal Not Available [facility] ([facility]) [address] [facility], [place], [address], 01/28/2024 12:06:00 01/27/20 24 01/28/2024 UA WITH CULTU RE REFLE X pH 7.0 5.0-7. 5 normal Not Available [facility] ([facility]) [address] [facility], [place], [address], 01/28/2024 12:06:00 01/27/20 24 01/28/2024 UA WITH CULTU RE REFLE X urine-color Yellow yellow Not Available [facility] ([facility]) [address] [facility], [place], [address], 01/28/2024 12:06:00 01/27/20 24 01/28/2024 UA WITH CULTU RE REFLE X appearance Clear clear Not Available [facility] ([facility]) [address] [facility], [place], [address], 01/28/2024 12:06:00 01/27/20 24 01/28/2024 UA WITH CULTU RE REFLE X WBC esterase Negati ve negati ve Not Available [facility] ([facility]) [address] [facility], [place], [address], 01/28/2024 12:06:00 01/27/20 24 01/28/2024 UA WITH CULTU RE REFLE X protein Negati ve negati ve/tra ce Not Available [facility] ([facility]) [address] [facility], [place], [address], 01/28/2024 12:06:00 01/27/20 24 01/28/2024 UA WITH CULTU RE REFLE X glucose Negati ve negati ve Not Available [facility] ([facility]) [address] [place], [address], 01/28/2024 12:06:00 01/27/20 24 01/28/2024 UA WITH CULTU RE REFLE X ketones Negati ve negati ve Not Available [facility] ([facility]) [address] [place], [address], 01/28/2024 12:06:00 01/27/20 24 01/28/2024 UA WITH CULTU RE REFLE X occult blood Negati ve negati ve Not Available [facility] ([facility]) [address] [place], [address], 01/28/2024 12:06:00 01/27/20 24 01/28/2024 UA WITH CULTU RE REFLE X bilirubin Negati ve negati ve Not Available [facility] ([facility]) [address] [facility], [place], [address], 01/28/2024 12:06:00 01/27/20 24 01/28/2024 UA WITH CULTU RE REFLE X urobilinogen ,semi-qn 0.2 mg/dL 0.2-1. 0 normal Not Available [facility] ([facility]) [address] [facility], [place], [address], 01/28/2024 12:06:00 01/27/20 24 01/28/2024 UA WITH CULTU RE REFLE X nitrite, urine Negati ve negati ve Not Available [facility] ([facility]) [address] [facility], [place], [address], 01/28/2024 12:06:00 01/27/20 24 01/28/2024 UA WITH CULTU RE REFLE X microscopic examination Commen t Micro scopi c not indic ated and not perfo rmed. Not Available [facility] ([facility]) [address] [facility], [place], [address], 01/28/2024 12:06:00 01/27/20 24 01/28/2024 UA WITH CULTU RE REFLE X urinalysis reflex Commen t This speci men will not refle x to a Urine Cultu re. Not Available [facility] ([facility]) [address] [facility], [place], [address], 01/28/2024 12:06:00 07/03/19 23 07/02/2022 US, retro perit oneum , compl ete US Retrop eriton eum Comp Reason : R31.29 MISCRO SCOPIC HEMATU CASSY; Clinic al Questi on(s): Other: COMPAR CASTRO: None. FINDIN GS: Right kidney : 11.6 cm in length . No hydron ephros is. Normal parenc hymal thickn ess and echote xture. No stones . No suspic ious mass. Left kidney : 10.4 cm in length . No hydron ephros is. Normal parenc hymal thickn ess and echote xture. No stones . No suspic ious mass. Urinar y bladde r: Normal morpho logy. No stone, mass, wall thicke kassie or debris . Bilate ral ureter al jets are identi fied on color Dopple r imagin g sugges ting ureter ovesic ular juncti on patenc y. Prevoi d volume : 187.4 cc. Postvo id volume : 118.2 cc. Prosta te: 2.9 x 3.7 x 2.7 cm, volume 15.6 cc. Visual ized liver is diffus juan miguel echoge gayla. IMPRES ANIKA: 1. No hydron ephros is or defini te suspic ious renal lesion . 2. Partia lly imaged echoge gayla liver sugges ting hepati c steato sis. 3. Postvo id residu al of 118 cc. WSN: [id number] Orderi ng Physic haven: Jed mohan MINCING MACHINE OPERATOR, Magy L Dictat ed By: Frank Carrion MD Dictat ed Date/T scottie: 3:47 pm Review ed By: Frank Carrion MD Signed By: Frank Carrion MD Signed Date/T scottie: 3:47 pm Transc ribed By: AMANDA Transc ribed Date/T scottie: 3:41 pm Patien t Class: Outpat ient idalmis [facility] (Outpt Imaging) [address] , [place], [address], 01/12/2023 11:06:09 11/05/19 23 08/24/2022 CT, abdom en + pelvi s, w/wo contr ast No observ ation record ed. idalmis Not Available 01/12 11:06:09 02/15/20 24 12/22/2023 US, groin No observ ation record ed. [facility] (Central Scheduling Radiology) [address] [facility], [place], [address], 02/15/2024 23:53:51 Result Notes None recorded. Problems Name Problem SNOMED Code Status Onset Date Resolution Date Notes Provider Name and Address Organization Details Recorded Time Injury of right knee 21969542506 868420 Active 2017 Fran Arguelles MD [address], [place], [address], [facility] 8 21:59:30 Suspecte d COVID-19 [id number] Completed 01/23/2021 Removal Reason: Problem added by user [email or web address] from the COVID-19 watch flag Brit Chaparro galina, [facility] 1 11:31:49 COVID-19 566678011 Completed 202111/04/2022 Fran Arguelles MD [address], [place], [address], [facility] 3 15:00:11 Elevated blood-pr essure reading without diagnosi s of hyperten anika 366628979 Completed 202207/13/2023 Fran Arguelles MD [address], [place], [address], [facility] 4 16:59:39 Body mass index 30+ - obesity 240876764 Completed 202207/13/2023 Fran Arguelles MD [address], [place], [address], [facility] 4 11:02:14 Bilatera l pain of inguinal region 69269586865 717241 Active 2023 Fran Arguelles MD [address], [place], [address], [facility] 4 11:02:09 Body mass index 30+ - obesity 386256518 Active 2023 Fran Arguelles MD [address] [facility] [address], [place], [address], [facility] 4 11:02:14 Problem Notes None recorded. Procedures Surgical History Date Name Laterality Status Provider Name and Address Organization Details Recorded Time 3 cystoscopy completed Fran Arguelles MD [address] [facility] [address], [place], [address], [facility] 09/27/2022 17:10:23 3 Colonoscopy completed Dunia Fitzgeraldnett [facility] 01/19/2023 13:48:34 Imaging Results None recorded. Procedure Notes None recorded. Medical Equipment None Reported. Allergies No known drug allergies Medications Name Sig Start Date Stop Date Status Note LastModified by Organization Details LastModified Time cyclobenzap rine 10 mg tablet 02/26 completed Not Available Not Available Not Available amoxicillin 500 mg capsule 06/12 completed Not Available Not Available Not Available doxycycline hyclate 100 mg capsule 1 tablet bid 06/12 completed Not Available Not Available Not Available azithromyci n 250 mg tablet 06/12 completed Not Available Not Available Not Available ondansetron HCl 8 mg tablet 10/19 completed Not Available Not Available Not Available cephalexin 500 mg capsule TAKE 1 CAPSULE BY MOUTH TWICE A DAY FOR 7 DAYS 06/12 completed Not Available Not Available Not Available erythromyci n 5 mg/gram (0.5 %) eye ointment APPLY 1 CM RIBBON INTO THE LOWER CONJUNCTI STANISLAV SAC(S) IN THE AFFECTED EYE(S) BY OPHTHALMI C ROUTE 3 TIMES PER DAY 01/23 completed Not Available Not Available Not Available mupirocin 2 % topical ointment APPLY TO AFFECTED AREA 3 TIMES A DAY FOR 5 DAYS 01/12 completed Not Available Not Available Not Available ibuprofen 600 mg tablet 02/26 completed Not Available Not Available Not Available methylpredn isolone 4 mg tablets in a dose pack Take 1-6 tablets by mouth as directed 02/26 completed Not Available Not Available Not Available albuterol sulfate HFA 90 mcg/actuati on aerosol inhaler Inhale 2 puffs every 4 hours by inhalatio n route as needed. 01/26 completed Not Available Not Available Not Available ondansetron 4 mg disintegrat ing tablet Place 1 tablet 3 times a day by transling ual route as needed for 5 days. 06/12 completed Not Available Not Available Not Available naproxen 500 mg tablet TAKE 1 TABLET BY MOUTH TWICE A DAY WITH FOOD 10/09 completed Not Available Not Available Not Available azithromyci n 500 mg tablet Take 2 tablets every day by oral route for 2 days. 01/28 completed Not Available Not Available Not Available Multi Vitamin 1 tablet po daily active Not Available Not Available No t Available Clenpiq 10 mg-3.5 gram-12 gram/160 mL oral solution 01/12 completed Not Available Not Available Not Available Vitals Date Recorded Body height Body mass index (BMI) Body weight Oxygen saturation Oxygen saturation in Arterial blood by Pulse oximetry Heart rate Body temperature Systolic And Diastolic Provider Name and Address Organization Details Last Updated DateTime 3 170.18 cm 30.4 kg/m2 87860.0 2 g 98 % 98 % 91 /min 98.4 [degF] 126/84 mm[Hg] Dede English MA [facility] 3 14:51:08 Date Recorded Body height Body mass index (BMI) Body weight Heart rate Oxygen saturation Oxygen saturation in Arterial blood by Pulse oximetry Body temperature Systolic And Diastolic Provider Name and Address Organization Details Last Updated DateTime 4 170.18 cm 29.5 kg/m2 40524.0 7 g 70 /min 99 % 99 % 98.6 [degF] 117/73 mm[Hg] Keke Quarles LPN [facility] 4 15:30:45 Date Recorded Body height Body mass index (BMI) Body weight Heart rate Oxygen saturation Oxygen saturation in Arterial blood by Pulse oximetry Body temperature Systolic And Diastolic Provider Name and Address Organization Details Last Updated DateTime 4 170.18 cm 29.8 kg/m2 08310.5 5 g 79 /min 98 % 98 % 98 [degF] 135/87 mm[Hg] Maureen Art MA [facility] 4 15:41:49 Date Recorded Body height Body mass index (BMI) Body weight Heart rate Oxygen saturation Oxygen saturation in Arterial blood by Pulse oximetry Body temperature Systolic And Diastolic Provider Name and Address Organization Details Last Updated DateTime 3 170.18 cm 32 kg/m2 06845.8 4 g 63 /min 98 % 98 % 98.6 [degF] 138/91 mm[Hg] Misty Guzmán [facility] 3 10:34:02 Date Recorded Body height Body mass index (BMI) Body weight Heart rate Oxygen saturation Oxygen saturation in Arterial blood by Pulse oximetry Body temperature Systolic And Diastolic Provider Name and Address Organization Details Last Updated DateTime 4 170.18 cm 30.9 kg/m2 21970.7 g 62 /min 98 % 98 % 97.6 [degF] 136/84 mm[Hg] Elida shore MA [facility] 4 10:35:08 Social History Question Answer Notes LastModified by Organizat ion Details LastModified Time Tobacco Smoking Status Never Smoker AMBER Bustillos, [facility] 11/29/2015 08:49:33 Do You Have An Advance Directive? Yes HCP/ -Germania ham Information not available 10/09/2020 Is Blood Transfusion Acceptable In An Emergency? Yes [email or web address] Information not available 11/29/2015 What Is Your Level Of Caffeine Consumption? Moderate 1+ Cup Of Coffee Daily Information not available 01/27/2024 What Type Of Diet Are You Following? REGULAR Intermittent Fasting Information not available 01/27/2024 Which Illicit Or Recreational Drugs Have You Used? None Information not available 11/29/2015 Live Alone Or With Others? With Others And 2 Kids, And Dog Information not available 01/12/2023 Do You Take Precautions To Prevent Distracted Driving? Yes [email or web address] Information not available 11/29/2015 How Often Do You Need To Have Someone Help You When You Read Instructions, Pamphlets, Or Other Written Material From Your Doctor Or Pharmacy? Never Information not available 10/09/2020 Have You Served In The ? Yes [employer] [email or web address] Information not available 11/29/2015 Have You Or Anyone In Your Household Had Any Of The Following Symptoms In The Last 14 Days: Sore Throat, Cough, Chills, Body Aches For Unknown Reasons, Shortness Of Breath For Unknown Reasons, Loss Of Smell, Loss Of Taste, Fever At Or Greater Than 100 Degrees Fahrenheit? 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 No [email or web address] Information not available 10/20/2019 *AWV ONLY* Are You Presently Prescribed Opioid Medication By PCP Or Specialist? If YES -Provider Assess The Benefit For Other, Non-opioid Pain Therapies Instead, Even If The Patient Does Not Have OUD But Is Possibly At Risk. No Information not available 10/09/2020 Have You Recently Traveled To A COVID-19 High Risk Area Or Gathering In The Last 10 Days? No Information not available 10/09/2020 What Was The Date Of Your Most Recent Tobacco Screening? 01/27/2024 Information not available 01/27/2024 How Many Children Do You Have? 2 Sanaz (5) And Song (6) Information not available 01/27/2024 Do You Use Protection During Sex? No [email or web address] Information not available 11/29/2015 Seat Belts Used Routinely Yes [email or web address] Information not available 11/29/2015 Are You Sexually Active? Yes Germania Information not available 01/27/2024 Smoke Alarm In Home Yes [email or web address] Information not available 11/29/2015 Are You Passively Exposed To Smoke? No Information not available 11/29/2015 Do You Use Sunscreen Routinely? Yes [email or web address] Information not available 11/29/2015 Sex: Unknown Functional Status Question Answer Note LastModified by Organizat ion Details LastModified Time Do you use any illicit or recreational drugs? No Information not available 10/09/2020 Do you or have you ever used any other forms of tobacco or nicotine? No Information not available 10/09/2020 What is your level of alcohol consumption? Occasional [email or web address] Information not available 01/12/2023 Are you currently employed? No [email or web address] Information not available 11/29/2015 Are you able to walk? YESWOREST Information not available 10/09/2020 Are you able to care for yourself? 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 Occasional indoor soccer 1 x week Information not available 01/27/2024 Mental Status None recorded. Family History Relationship Description Onset Age of this Age Resolved Age Notes LastModified by Organization Details LastModified Time Brother Malignant neoplasm of brain 13 Not available 11/28 08:48:25 Maternal Grandmother Diabetes mellitus [email or web address] Not available 11/28 08:48:52 Sister Well adult [email or web address] Not avail able 11/29/2015 09:02:03 Sister Malignant melanoma [email or web address] Not available 01/26 11:05:44 Mother Well adult [email or web address] Not avail able 11/29/2015 09:02:12 Father Malignant neoplasm of lung 60 [email or web address] Not available 01/12 10:48:23 Notes:No FH of colon or lola st cancer Medical History Condition Response Coronary Artery Disease N Other N Gout N Kidney Stones N Blood Diseases N Hyperthyroidism N Breast Cancer N mrsa exposure N Hypothyroidism N Lung Disease N COPD N Depression N Developmental or Behavioral Disorders N Defects or Inherited Disease N Breast Problem N Anesthesia Complications N Headaches/Migraines N Anxiety Disorder N Varicose Veins N Muscle, Joint, or Bone Problems N Obesity N Vision or Eye Problems N Arthritis N Head Injury/Concussion N Infertility N Polyps N Mental Disorder N Congenital Anomalies N Acid Reflux (GERD) N Cancer N Stroke N ADHD N Endometriosis N High Cholesterol N Liver Disease N Fibromyalgia N Headaches N Kidney Disease N Heart Problems N Ear or Hearing Problems N Hospitalizations N Thyroid Problems N GI Problems N Developmental Delay N Acne N Skin Problems N Eating Disorder N Anemia N Constipation N Bladder Problems N Mental Illness N Ovarian Cancer N Diabetes N Bedwetting N Blood Transfusions N Seizures/Epilepsy N Heart Problems/Murmur N Tuberculosis N AIDS/HIV N Congestive Heart Failure (CHF) N Eczema N Diverticulitis N Abuse/Domestic Violence N Asthma N Allergies N Reflux/GERD N Hepatitis N Heart Disease N Pulmonary Embolism N Hypertension N Chicken Pox N Autism Spectrum Disorder (ASD) N Osteoporosis N Immunizations Vaccine Type Date Status Note Provider Nam e and Address Organization Details Recorded Time Tdap 3 completed Dede English [place] null, [facility] 11/29/2015 08:47:50 DTaP 2 completed Dianne Wilkinson null, [facility] 12/16/2015 15:49:30 DTaP 2 completed Dianne Wilkinson null, [facility] 12/16/2015 15:49:34 DTaP 2 completed Dianne Wilkinson null, [facility] 12/16/2015 15:49:40 DTaP 3 completed Dianne Wilkinson null, [facility] 12/16/2015 15:49:46 DTaP 7 completed Dianne Wilkinson null, [facility] 12/16/2015 15:49:51 Hep B, adult 6 completed Dianne Wilkinson null, [facility] 12/16/2015 15:50:03 Hep B, adult 6 completed Dianne Wilkinson null, [facility] 12/16/2015 15:50:07 Hep B, adult 6 completed Dianne Wilkinson null, [facility] 12/16/2015 15:50:12 Hib ([facility]) 2 completed Dianne Wilkinson null, [facility] 12/16/2015 15:50:23 Hib ([facility]) 2 completed Dianne Wilkinson null, [facility] 12/16/2015 15:50:27 [facility] ([facility]) 2 completed Dianne Wilkinson null, [facility] 12/16/2015 15:50:32 Hib (HbOC) 3 completed Dianne Wilkinson null, [facility] 12/16/2015 15:50:36 meningococcal C conjugate 8 completed Dianne Wilkinson null, [facility] 12/16/2015 15:50:47 MMR 3 completed Dianne Wilkinson null, [facility] 12/16/2015 15:50:58 MMR 7 completed Dianne Wilkinson null, [facility] 12/16/2015 15:51:03 OPV 2 completed Dianne Wilkinson null, [facility] 12/16/2015 15:51:13 OPV 2 completed Dianne Wilkinson null, [facility] 12/16/2015 15:51:18 OPV 3 completed Dianne Wilkinson null, [facility] 12/16/2015 15:51:22 OPV 7 completed Dianne Wilkinson null, [facility] 12/16/2015 15:51:27 Td (adult) 4 completed Dianne Wilkinson null, [facility] 12/16/2015 15:51:45 Tdap 8 completed Dianne Wilkinson null, [facility] 12/16/2015 15:51:54 varicella 6 completed Dianne Wilkinson null, [facility] 12/16/2015 15:52:06 varicella 6 completed Dianne Wilkinson null, [facility] 12/16/2015 15:52:11 varicella 8 completed Dianne Wilkinson null, [facility] 12/16/2015 15:52:25 Influenza, split virus, quadrivalent, PF 9 completed Anjelica Castaneda [place] null, [facility] 02/26/2021 12:47:00 Influenza, split virus, trivalent, preservative 2 completed AMBER Bustillos, [facility] 03/04/2021 14:54:24 COVID-19, mRNA, LNP-S, PF, 30 mcg/0.3 mL dose, terra-sucrose 2 completed AMBER Da Silva, [facility] 01/12/2023 10:23:39 COVID-19, mRNA, LNP-S, PF, 30 mcg/0.3 mL dose, terra-sucrose 2 completed AMBER Da Silva, [facility] 01/12/2023 10:23:39 Influenza, split virus, quadrivalent, PF 6 completed Not Available [facility] 03/11/2019 02:22:04 Tdap 7 completed Not Available [facility] 03/11/2019 02:21:47 Influenza, split virus, quadrivalent, PF 1 completed AMBER Boyce, [facility] 12/11/2020 10:51:27 Influenza, split virus, quadrivalent, PF 3 completed Fran Arguelles MD [address], [address] 01/12/2023 11:01:08 Past Encounters Encounter ID Performer Location Encounter Start Date Encounter Closed Date Diagnosis/Indication Diagnosis SNOMED-CT Code Diagnosis ICD10 Code Diagnosis Note [id number] Fran Arguelles MD Main Office [address] [address] 11/29/2015 08:28:09 11/29/2015 09:22:35 Adult health examination 791706074 Z00.00 Immunizati on status utyd based on pt report. Will track down old records for confirmati on. Regular dental and ophtho care advised as well as seat belt and sunscreen use. Distracted driving discussed. Advance directives in place. Needs infl uenza immunization 032453141 Z23 Body mass index 25-29 - overweight 577166006 E66.3 [id number] ZARA Lopez Main Office [address] [facility] [address] [place] [address] 01/28/2017 09:30:44 01/28/2017 10:05:04 Adult health examination 441019345 Z00.00 HM UTD, tdap updated due to new baby expected in February. Administra tion of viral vaccine [id number] Z23 Knee pain 71964258 M25.5 61 Right knee pain x 3 weeks ? soccer related. pain to medial knee. No injury or trauma, will refer to ortho for further eval. Body mass index 25-29 - overweight 696567213 E66.3 Z68.25 [id number] Verena valdes MD [facility] [address] [facility] [address] [place] [address] 10/20/2019 06:40:35 10/20/2019 12:10:44 Counseling 118255412 Z71.9 Health advice, education or counseling done for COVID 19 Exposure t o viral disease [id number] 75982 Z03.818 Due to exposure will get tested. Needs to quarantine in place with family ( and 2 kids) until test results are back. Pt agrees, will send for testing today. [id number] Verena valdes MD Main Office [address] [address] 10/09/2020 14:57:46 10/09/2020 16:13:29 Adult health examination 337041269 Z00.00 Pt is in good general health. Social and family history reviewed. Immunizati ons reviewed, advised annual flu shot, had covid vaccine. Reviewed diet and exercise. Labs to be done Dyspnea 449784426 R06.00 hare to take a deep breath at times. Has some with exertion, not in great shape per pt, Due to new onset of breathing difficuly will send for PFT with pulm eval to rule out asthma Atypical chest pain 1025 80537 R07.89 exertional and non exertional , no pattern, pt concerned and this seems new, will eval with stress echo EKG in office normal Could in part be stress related or deconditio kassie . Followup after tests. [id number] Verena valdes MD Main Office [address] [facility] [address] [place] [address] 12/11/2020 09:16:27 12/11/2020 10:07:56 Needs influenza immunization [id number] Z23 Dyspnea 303008271 R06.00 pt has pulmonary evaluation next week Atypical chest pain 1025 01123 R07.89 exertional and non exertional , no pattern, pt concerned and this seems new, had stress echo showing chronotrop ic incompeten ce. Pt thinks they did not push him hard enough. Agrees to see cardiology to evaluate. EKG normal. Could in part be stress related or deconditio kassie per pt. . Will do labs today Acute conjunctivitis 537 45420 H10.31 apply to area under the eye for 5 days, call if not improving [id number] Fran Arguelles MD Main Office [address] [address] [place] [address] 01/23/2021 15:01:10 01/23/2021 15:35:26 Pain of sacroiliac joint 735431765 M53.3 c/w SIJ etiology. See if steroid helps with possible inflammati on. Will check labs and possibly imaging inb/worse. [id number] Wil Choi MD [place] [address] [facility] [address] [place] [address] 02/26/2021 11:45:41 02/26/2021 14:14:19 COVID-19 130749308 U07.1 hydration, isolation, tylenol or motrin as needed. Counseling 886723537 Z71 .9 Health advice, education or counseling done for COVID 19 Nausea and vomiting 1693 1999 R11.2 unable to keep anything down today. will tx with zofran as needed TID, continue hydration- pedialyte or gatorade, bland diet and advance as tolerated. [id number] Fran Arguelles MD [facility] [address] [facility] [address] [place] [address] 03/04/2021 08:54:44 03/05/2021 09:09:44 COVID-19 989001568 U07.1 originally dx'd on 12.27 - feeling ~ 75% better lately Counseling 540279607 Z71 .9 Health advice, education or counseling done for COVID 19 Pneumonia 264718919 J18. 9 pt seen at ER last w/e - dx'd c covid-harman meehan - feeling ~ 75% better - finish abx as directed - except still has occ sob c coughing fit, exertion (upstairs) -- see below Dyspnea 259876198 R06.00 will give trial of prn alb pt recently d/x c covid, then covid-rela sebastian pna - please excuse from his physical fitness test on 03.06.21 === for state police [id number] Magy caceres, [employer] Main Office [address] [facility] [address] [place] [address] 06/12/2022 14:27:59 06/12/2022 15:52:40 Microscopic hematuria 554459981 R31.29 negative urine dip today will send out to double check. Due to intermitte nt blood will refer to urology and do ultrasound KUB Dysuria 24731316 R30.0 History of rectal bleeding 6600695491 0945268 Z87.19 pt also mentions intermitte nt bleeding, thinks it is hemorrhoid al, needs to see GI and probable colonoscop y Lesion of penis 19225480 0 N48.9 urology to check does not appear herpetic or infectious . Seems to have multiple whiteheads , advised not picking areas, let them heal and see urology . [id number] Fran Arguelles MD Main Office [address] [facility] [address] [place] [address] 01/12/2023 10:17:17 01/12/2023 11:03:01 Adult health examination 448358176 Z00.00 Immunizati on status updated, COVID booster advised via local pharmacy. Regular dental and ophtho care advised as well as seat belt and sunscreen use. Monthloy LASHELL advised. Distracted driving discussed. Advance directives in place. Needs infl uenza immunization 664255259 Z23 Body mass index 30+ - obesity 888475097 E66.9 Z68.32 Elevated blood-pressure reading without diagnosis of hypertension 898279884 R03.0 Hepatitis C screening 41 8910398 Z11.59 Steatotic liver disease 821414639 K76.0 Seen incidental ly on renal u/s. Will monitor labs. Diet and lifestyle modificati ons discussed. [id number] Fran Arguelles MD Main Office [address] [facility] [address] [place] [address] 07/13/2023 15:02:21 07/13/2023 16:20:55 Elevated blood-pressure reading without diagnosis of hypertension 188666715 R03.0 BP appears to be weight/ t sensitive, without evidence of end organ damage. Well controlled now, will monitor. [id number] Wil Choi MD Main Office [address] [facility] [address] [place] [address] 11/24/2023 15:36:36 11/24/2023 16:07:03 Left inguinal pain 2268243993 6494823 R10.32 Probably secondary to exercise but will get an US to r/o a hernia. He will make an appointmen t with [facility]. [id number] Fran Arguelles MD Main Office [address] [facility] [address] [place] [address] 01/27/2024 10:23:56 01/27/2024 11:16:17 Adult health examination 947371430 Z00.00 Immunizati on status updated, COVID booster advised via local pharmacy. Regular dental and ophtho care advised as well as seat belt and sunscreen use. Monthly LASHELL advised. Distracted driving discussed. Advance directives in place. Influenza vaccination declined 157207341 Z28.21 Bilateral pain of inguinal region 5016294925 5778755 R10.31 Sounds c/w psoas strain/ten dinopathy. Will try home PT and consult PMR. If no improvemen t or symptoms change may need further eval. Will request recent u/s report. Body mass index 30+ - obesity 644538085 Z68.30 E66.9 Health Concerns Section Related Observation LastModified by Organization Pablo aggarwal LastModified Time None Recorded Concern Status LastModified by Organization Details LastModified Time None Recorded Advance Directives Directive Y: HCP/ -Germania Payers Insurance Date Sequence Insurance Name Policy Number Policy [place] Covered Member ID [place] Member ID Guarantor Name 02/08/2024 1 [facility] (O) [id number] Germania Kovacs [id number] Bertin D Smola 10/09/2020 1 [facility] [id number] Germania Kovacs [id number] Bertin D Smola 10/19/[address] [facility] (PPO) [id number] Courtney Lee [id number] Bertin D Smola 10/09/2020 1 HATTIE [id number] Germania Kovacs [id number] Bertin D Smola Notes Date Note Type Note Provider Name and Address Organization Details Recorded Time 06/12/2022 text/html Pt went to ED fo r flank pain, had hematuria but no stone on bedside US, CT not needed per EDWa seen at last Sat for rash on penis and occasional dysuria. Was told rash was not anything acute and urine negative. Rash fading, has 3 bumps but he keeps picking them. No hx of chancre or blisters, not painfull or weeping, no new sex partneres. His does not have any symptoms. Magy mojica, [facility] 06/15/2022 08:11:27 01/12/2023 text/html Generic HPI TemplateReported bypatient.Notes:Here for a physical, feels well. Seeing dentist and ophtho regularly. Fran Arguelles MD [address] [address], [place], [address], [facility] 01/12/2023 11:06:26 07/13/2023 text/html Had elevated BP at his physical in Dec 2022 (138/91). Labs were normal as were ECG and echo done in 2020. No evidence of end organ damage. Has lost 16 lbs since last visit via exercise and lifestyle changes. Feels well. Fran Arguelles MD [address] [facility] [address], [place], [address], [facility] 07/13/2023 17:01:26 11/24/2023 text/html He has been havi ng pain in his inguinal area L>R for 2-3 months. He also felt a bulge on the left side which is no longer present. He was seen by a surgeon [place] a couple of months ago and told that he didn't have a hernia. He works out regularly at the gym and often has pain in the area when doing lunges. He does not work out daily but the pain has persisted even on days that he is resting. He denies any bowel changes. No n/v, f/c. Wil Choi MD [address] [address], [place], [address], [facility] 11/24/2023 17:24:30 01/27/2024 text/html Generic HPI TemplateReported bypatient.Notes:Here for a physical, feels well. Seeing dentist and ophtho regularly. Continues to have inguinal pain and was seen by surgery and had an u/s done but no results/notes sent to me. Fran Arguelles MD [address] [address], [place], [address], [facility] 01/27/2024 13:18:09
--- OUTSIDE RECORDS SUMMARY | 2024-09-06 21:04 | XMS_ITS | Clinical Summary ---
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 Name Role Phone Fran Danielson MD Primary Care Provider Social History Tobacco Use Types Packs/Day Years Used Date Smoking Tobacco: Never Assessed Sex and Gender Information Value Date Recorded Sex Assigned at Not on file Gender Identity Not on file Sexual Orientation Not on file Job Start Date Occupation Industry Not on file Not on file Not on file Plan of Treatment Health Maintenance Due Date Last Done Comments Hepatitis C Screening 1991 Depression Screening 2003 Preventative Health Evaluation 2009 DTap / Tdap / Td (7 - Td or Tdap) 08/15/2017 08/16/2007, 05/11/2003, 05/03/1996, Additional history exists COVID-19 Vaccine ( season) 2023 06/27/2021, 06/06/2021 Influenza Vaccine (#1) 2024 , 12/11/2020, 02/14/2019, Additional history exists Hepatitis B Vaccines Completed 02/21/1996, 02/21/1996, 09/20/1995, Additional history exists Pneumococcal Vaccine Aged Out No long er eligible based on patient's age to complete this topic RSV Ped < 20 months Aged Out No longe r eligible based on patient's age to complete this topic Care Teams Stereo Map Plotter Operator Relationship Specialty Start Date End Date Fran Danielson MD [address] [place] [address] PCP - General Internal Medicine 10/21/23
--- OUTSIDE RECORDS SUMMARY | 2024-09-06 21:04 | XMS_ITS ---
Author Name [facility] Organization Unknown Care Team Organization Name Specialty Phone Email Start Date End Da te [facility] Not Found Primary Care 03/14/2023 06/09/2024
--- NOTE | 2024-09-06 22:31 | ED.EXTPRO ---
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 pain under other person felt pain in the left wrist no other injury Related Data Allergies Allergy/AdvReac Type Severity Reaction Status Date / Time No Known Allergies Allergy Verified 09/06/24 20:56 Review of Systems Review of Systems: Yes all other systems are reviewed and are negative [facility] Social History Social History Advance Directives: No Advance Directives Information Provided: No Do you have a plan to hurt others: No Plan Physical Exam Vital Signs: Vital Signs: Last Vital Signs Temp 98.0 F 09/06/24 23:02 Pulse 68 09/06/24 23:02 Resp 16 09/06/24 23:02 BP 133/76 09/06/24 23:02 Pulse Ox 98 09/06/24 23:02 O2 Del Method Room Air 09/06/24 23:02 BMI result Body Mass Index 29.8 Appearance: Alert. Oriented X3. No acute distress. Eyes: PERRLA, No Nystagmus ENT: Pharynx normal. Oral Mucosa moist atraumatic normocephalic Neck: Normal inspection. Neck supple. CVS: Normal heart rate and rhythm. Pulses normal. Respiratory: No respiratory distress. Equal air entry bilateral, no wheezing/rales/rhonchi Abdomen: Soft and nontender. Bowel sounds are present, no mass palpable, no CVA tenderness Skin: Skin warm and dry. Normal skin color. Normal skin turgor. Extremities: No lower extremity edema. No calf tenderness left wrist slight tenderness at the medial aspect no deformity neurovascular intact Neuro: Oriented X 3. No motor deficit. No sensory deficit.No cerebellar signs , cranial nerves II-XII intact Medical Decision Making Medical Decision Making [facility] Narrative: Patient with left wrist sprain good range of movement x-ray negative for fracture was given Kenrick wrap patient does not want to use Kenrick wrap will use it as needed Independent Interpretation I performed an independent interpretation of an: Plain X-Ray Interpretation: No fracture Radiology Impression Discussion of test interpretation with radiology: I have reviewed the radiologist's reading. Discharge Plan Discharge Clinical Impression: Sprain and strain of wrist Patient Disposition: Home, Self-Care Instructions: Wrist Sprain (ED) Additional Instructions: Your x-rays negative for fracture, likely have minor strain Ibuprofen for pain as needed Interventions: ED Discharge Assessment Last Done: 09/06/24 23:02 Discharge Date/Time: 09/06/24 23:02 Print Language: Belarusian
[2024-09-06 23:02] VITALS: BP 133/76; PULSE 68; RESP 16; TEMP 36.7; O2SAT 98
== END 2024-09-06 23:02 | disposition home or self-care (01) ==
PROVIDERS: Emergency Provider Internal Medicine
DX: S63.502A Unspecified sprain of left wrist, initial encounter (principal); M25.532 Pain in left wrist; S69.92XA Unspecified injury of left wrist, hand and finger(s), initial encounter; X58.XXXA Exposure to other specified factors, initial encounter; Y93.9 Activity, unspecified; Y92.9 Unspecified place or not applicable; Y99.0 Civilian activity done for income or pay
CPT/HCPCS: 73110; 73130; 99282; 99283

== ENCOUNTER → 2024-09-06 20:57 | Outpatient (BNV) | payer OTHER, SELFPAY | PROVIDERS: Visit Provider Radiology Diagnostic Radiology | DX: S60.212A Contusion of left wrist, initial encounter (principal); M25.532 Pain in left wrist; S60.222A Contusion of left hand, initial encounter | CPT/HCPCS: 73110; 73130 ==